=== PATIENT | male | born 2000 | race Caucasian/White ===

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

== ENCOUNTER → 2022-05-04 | Outpatient (CLI) | payer OTHER | END | disposition home or self-care (01) | LOC: LAB 13:30 → LAB SHORT 13:30 | DX: J02.9 Acute pharyngitis, unspecified (principal) | CPT/HCPCS: 87081 ==

== ENCOUNTER 2024-03-14 13:03 | Emergency (ER) | payer SELFPAY ==
[~2024-03-14] VITALS: Ht 177.8 cm; Wt 81.7 kg
[~2024-03-14 13:03] MED LIST changes: -ALBU90OI INH; -OMEP20ER PO
[2024-03-14] MEDS ORDERED: ALBU90OI INH (15:23)
[2024-03-14] MEDS ORDERED: OMEP20ER PO (16:06)
[2024-03-14 16:30] VITALS: BP 133/65
== END 2024-03-14 17:00 | disposition home or self-care (01) ==
LOC: ER 13:03
DX: R10.13 Epigastric pain (principal); F17.220 Nicotine dependence, chewing tobacco, uncomplicated
CPT/HCPCS: 74018; 76705; 80053; 83690; 85025; 99284-25

== ENCOUNTER → 2024-03-14 | Outpatient (CLI) | payer SELFPAY ==
[~2024-03-14] MED LIST changes: +ALBU90OI INH; +OMEP20ER PO
[2024-03-14 11:36] LABS: BASOPHILS ABSOLUTE AUTO 0.02 K/mm3 (0.00-0.23); BASOPHILS PERCENT AUTO 0 % (0-2); EOSINOPHILS ABSOLUTE AUTO 0.08 K/mm3 (0.00-0.68); EOSINOPHILS PERCENT AUTO 1 % (0-6); Hematocrit 45.7 % (37.0-53.0); Hemoglobin 15.9 g/dL (13.5-17.5); IMMATURE GRAN ABSOLUTE AUTO 0.02 K/mm3 (0.00-0.10); IMMATURE GRAN PERCENT AUTO 0 % (0-1); LYMPHOCYTES ABSOLUTE AUTO 1.99 K/mm3 (0.84-5.20); LYMPHOCYTES PERCENT AUTO 30 % (21-46); MONOCYTES PERCENT AUTO 9 % (4-13); Mean Corpuscular HGB Conc 34.8 g/dL (31.5-36.5); Mean Corpuscular Volume 81 fL (80-100); Mean Platelet Volume 9.5 fL (9.1-12.4); NEUTROPHILS ABSOLUTE AUTO 3.84 K/mm3 (1.96-9.15); NEUTROPHILS PERCENT AUTO 59 % (41-73); Platelet Count 277 K/mm3 (150-400); RDW Coefficient Variation 11.9 % (11.7-14.2); RDW Standard Deviation 34.7 fL (35.1-46.3); Red Blood Cell Count 5.68 M/mm3 (4.30-5.90); White Blood Cell Count 6.55 K/mm3 (4.00-11.30)
[2024-03-14 11:45] LABS: Albumin, Blood 4.6 g/dL (3.4-5.0); Albumin/Globulin Ratio 1.2 (0.8-1.8); Bilirubin, Total 0.5 mg/dL (0.1-1.0); Bun/Creatinine Ratio 14.4 (12.0-20.0); Calcium, Blood 9.6 mg/dL (8.5-10.1); Creatinine, Blood 1.18 mg/dL (0.60-1.20); Globulin, Blood 3.7 g/dL (2.2-4.0); Potassium, Blood 3.7 mmol/L (3.5-5.5); Total Protein, Blood 8.3 g/dL (6.4-8.2)
== END | disposition home or self-care (01) ==
LOC: LAB SHORT 11:32 → LAB 11:32
PROVIDERS: Physician Assistant
DX: R10.9 Unspecified abdominal pain (principal)
CPT/HCPCS: 80053; 83690; 85025

== ENCOUNTER 2024-04-09 09:37 | Emergency (ER) | payer OTHER ==
[~2024-04-09] VITALS: Ht 180.3 cm; Wt 86.2 kg
[~2024-04-09 09:37] MED LIST changes: +ALBU90OI INH; +OMEP20ER PO
[2024-04-09] MEDS ORDERED: NS 1,000 ML IV SCH (10:20)
[2024-04-09] MEDS ORDERED: Ondansetron HCl 2 MG / ML 2ML Vial IV ONE (10:20)
[2024-04-09] MEDS ORDERED: Morphine Sulfate 4 MG/1 ML Injection IV ONE (10:20)
[2024-04-09 11:18] LABS: BASOPHILS ABSOLUTE AUTO 0.02 K/mm3 (0.00-0.23); BASOPHILS PERCENT AUTO 0 % (0-2); EOSINOPHILS ABSOLUTE AUTO 0.05 K/mm3 (0.00-0.68); EOSINOPHILS PERCENT AUTO 0 % (0-6); Hematocrit 46.7 % (37.0-53.0); IMMATURE GRAN ABSOLUTE AUTO 0.05 K/mm3 (0.00-0.10); IMMATURE GRAN PERCENT AUTO 0 % (0-1); LYMPHOCYTES ABSOLUTE AUTO 1.56 K/mm3 (0.84-5.20); LYMPHOCYTES PERCENT AUTO 13 % (21-46); MONOCYTES ABSOLUTE AUTO 0.66 K/mm3 (0.16-1.47); MONOCYTES PERCENT AUTO 5 % (4-13); Mean Corpuscular HGB 28.3 pg (26.0-34.0); Mean Corpuscular HGB Conc 34.3 g/dL (31.5-36.5); Mean Corpuscular Volume 83 fL (80-100); Mean Platelet Volume 9.4 fL (9.1-12.4); NEUTROPHILS ABSOLUTE AUTO 10.03 K/mm3 (1.96-9.15); NEUTROPHILS PERCENT AUTO 81 % (41-73); Platelet Count 295 K/mm3 (150-400); RDW Coefficient Variation 12.4 % (11.7-14.2); Red Blood Cell Count 5.66 M/mm3 (4.30-5.90); White Blood Cell Count 12.37 K/mm3 (4.00-11.30)
[2024-04-09] MEDS ORDERED: Morphine Sulfate 4 MG/1 ML Injection IM ONE (11:35)
[2024-04-09 11:38] LABS: Albumin, Blood 4.6 g/dL (3.4-5.0); Albumin/Globulin Ratio 1.2 (0.8-1.8); Bilirubin, Total 0.7 mg/dL (0.1-1.0); Bun/Creatinine Ratio 9.9 (12.0-20.0); Calcium, Blood 10.2 mg/dL (8.5-10.1); Creatinine, Blood 1.01 mg/dL (0.60-1.20); Globulin, Blood 3.8 g/dL (2.2-4.0); Potassium, Blood 3.5 mmol/L (3.5-5.5); Total Protein, Blood 8.4 g/dL (6.4-8.2)
[2024-04-09] MEDS ORDERED: Lidocaine 2% Viscous Soln 15 ML UDC PO ONE ×2 (12:40→13:30)
[2024-04-09] MEDS ORDERED: Mag Hydrox/AL Hydrox/Simeth 30 ML UDC PO ONE ×2 (12:40→13:30)
[2024-04-09] MEDS ORDERED: Atropine/Scopalam/Hyoscam/PB 5 ML UDC PO ONE ×2 (12:40→13:30)
[2024-04-09 12:59] LABS: Source, Urine Clean Catch
[2024-04-09 13:04] LABS: Appearance, Urine Clear (Clear); Bilirubin, Urine Neg (Neg); Blood, Urine Neg (Neg); Color, Urine Yellow (P-Yellow); Glucose Qualitative, Urine Neg (Neg); Ketones, Urine 2+ (Neg); Leukocyte Esterase, Urine Neg (Neg); Nitrite, Urine Neg (Neg); Protein, Urine Neg (Neg); Urobilinogen, Urine NORM (Normal)
[2024-04-09] MEDS ORDERED: DICY20 PO (14:22)
[2024-04-09] MEDS ORDERED: ONDA4ODT MM (14:22)
[2024-04-09] MEDS ORDERED: FAMO20 PO (14:22)
[2024-04-09] MEDS ORDERED: ALUM-MAG HYDROX30 M1 PO (14:22)
[2024-04-09 14:28] VITALS: BP 155/88
== END 2024-04-09 14:29 | disposition home or self-care (01) ==
LOC: ER 09:37
PROVIDERS: Student in an Organized Health Care Education/Training Program
DX: R10.13 Epigastric pain (principal); R11.2 Nausea with vomiting, unspecified; R14.0 Abdominal distension (gaseous); J45.998 Other asthma; F17.220 Nicotine dependence, chewing tobacco, uncomplicated; Z79.899 Other long term (current) drug therapy
CPT/HCPCS: 74177; 80053; 81003; 83690; 85025; 96361; 96374-59; 96375; 96376; 99284-25; A9270; J2270; J2405; J7030; Q9967

== ENCOUNTER 2024-04-11 16:08 | Emergency (ER) | payer OTHER ==
[~2024-04-11] VITALS: Ht 180.3 cm; Wt 80.7 kg
[~2024-04-11 16:08] MED LIST changes: +ALUM-MAG HYDROX30 M1 PO; +DICY20 PO; +FAMO20 PO; +ONDA4ODT MM
[2024-04-11 16:46] LABS: BASOPHILS ABSOLUTE AUTO 0.02 K/mm3 (0.00-0.23); BASOPHILS PERCENT AUTO 0 % (0-2); EOSINOPHILS ABSOLUTE AUTO 0.01 K/mm3 (0.00-0.68); EOSINOPHILS PERCENT AUTO 0 % (0-6); Hemoglobin 16.2 g/dL (13.5-17.5); IMMATURE GRAN ABSOLUTE AUTO 0.03 K/mm3 (0.00-0.10); IMMATURE GRAN PERCENT AUTO 0 % (0-1); LYMPHOCYTES ABSOLUTE AUTO 0.98 K/mm3 (0.84-5.20); LYMPHOCYTES PERCENT AUTO 8 % (21-46); MONOCYTES ABSOLUTE AUTO 0.64 K/mm3 (0.16-1.47); MONOCYTES PERCENT AUTO 5 % (4-13); Mean Corpuscular HGB 28.3 pg (26.0-34.0); Mean Corpuscular HGB Conc 34.5 g/dL (31.5-36.5); Mean Corpuscular Volume 82 fL (80-100); NEUTROPHILS ABSOLUTE AUTO 10.97 K/mm3 (1.96-9.15); NEUTROPHILS PERCENT AUTO 87 % (41-73); Platelet Count 273 K/mm3 (150-400); RDW Coefficient Variation 12.3 % (11.7-14.2); RDW Standard Deviation 36.5 fL (35.1-46.3); Red Blood Cell Count 5.72 M/mm3 (4.30-5.90); White Blood Cell Count 12.65 K/mm3 (4.00-11.30)
[2024-04-11 17:04] LABS: Albumin, Blood 4.2 g/dL (3.4-5.0); Albumin/Globulin Ratio 1.1 (0.8-1.8); Bilirubin, Total 0.8 mg/dL (0.1-1.0); Bun/Creatinine Ratio 13.4 (12.0-20.0); Calcium, Blood 9.5 mg/dL (8.5-10.1); Creatinine, Blood 0.97 mg/dL (0.60-1.20); Globulin, Blood 3.7 g/dL (2.2-4.0); Potassium, Blood 3.8 mmol/L (3.5-5.5); Total Protein, Blood 7.9 g/dL (6.4-8.2)
[2024-04-11] MEDS ORDERED: NS 1,000 ML IV SCH ×2 (18:55→20:15)
[2024-04-11] MEDS ORDERED: Droperidol 5 mg/2 ml Vial IV ONE (18:55)
[2024-04-11] MEDS ORDERED: Haloperidol Lactate Inj. 5 MG/ML Injection IV ONE (19:20)
[2024-04-11] MEDS ORDERED: DiphenhydrAMINE HCl 50 MG/ML 1ML Vial IV ONE (19:50)
[2024-04-11 21:06] VITALS: BP 129/69
== END 2024-04-11 21:07 | disposition home or self-care (01) ==
LOC: ER 16:08
PROVIDERS: Physician Assistant
DX: R11.2 Nausea with vomiting, unspecified (principal); E86.0 Dehydration; F17.220 Nicotine dependence, chewing tobacco, uncomplicated; Z79.899 Other long term (current) drug therapy
CPT/HCPCS: 80053; 85025; 96361; 96374; 96375; 99284-25; J1200; J1630; J7030

== ENCOUNTER 2024-04-15 10:00 | Inpatient (IN) | payer OTHER ==
[~2024-04-15] VITALS: Ht 180.3 cm; Wt 78.3 kg
[2024-04-15] MEDS ORDERED: Ondansetron HCl 2 MG / ML 2ML Vial IV ONE (10:20)
[2024-04-15 10:55] LABS: BASOPHILS ABSOLUTE AUTO 0.02 K/mm3 (0.00-0.23); BASOPHILS PERCENT AUTO 0 % (0-2); EOSINOPHILS ABSOLUTE AUTO 0.08 K/mm3 (0.00-0.68); EOSINOPHILS PERCENT AUTO 1 % (0-6); Hematocrit 47.5 % (37.0-53.0); Hemoglobin 16.7 g/dL (13.5-17.5); IMMATURE GRAN ABSOLUTE AUTO 0.02 K/mm3 (0.00-0.10); IMMATURE GRAN PERCENT AUTO 0 % (0-1); LYMPHOCYTES ABSOLUTE AUTO 1.92 K/mm3 (0.84-5.20); LYMPHOCYTES PERCENT AUTO 27 % (21-46); MONOCYTES ABSOLUTE AUTO 0.73 K/mm3 (0.16-1.47); MONOCYTES PERCENT AUTO 10 % (4-13); Mean Corpuscular HGB 28.4 pg (26.0-34.0); Mean Corpuscular HGB Conc 35.2 g/dL (31.5-36.5); Mean Corpuscular Volume 81 fL (80-100); NEUTROPHILS PERCENT AUTO 61 % (41-73); Platelet Count 276 K/mm3 (150-400); RDW Coefficient Variation 12.3 % (11.7-14.2); RDW Standard Deviation 35.2 fL (35.1-46.3); Red Blood Cell Count 5.89 M/mm3 (4.30-5.90); White Blood Cell Count 7.17 K/mm3 (4.00-11.30)
[2024-04-15 11:14] LABS: Albumin, Blood 4.4 g/dL (3.4-5.0); Albumin/Globulin Ratio 1.2 (0.8-1.8); Bilirubin, Total 1.1 mg/dL (0.1-1.0); Bun/Creatinine Ratio 11.4 (12.0-20.0); Calcium, Blood 9.3 mg/dL (8.5-10.1); Creatinine, Blood 1.05 mg/dL (0.60-1.20); Globulin, Blood 3.8 g/dL (2.2-4.0); Magnesium, Blood 2.3 mg/dL (1.6-2.4); Potassium, Blood 3.4 mmol/L (3.5-5.5); Total Protein, Blood 8.2 g/dL (6.4-8.2)
[2024-04-15] MEDS ORDERED: Metoclopramide HCl 5MG / ML 2ML Vial IV ONE (14:05)
[2024-04-15] MEDS ORDERED: NS 1,000 ML IV SCH (14:05)
[2024-04-15] MEDS ORDERED: Morphine Sulfate 4 MG/1 ML Injection IV ONE (14:40)
[2024-04-15] MEDS ORDERED: Sucralfate 1000MG / 10ML UD BTL PO ONE (15:05)
[2024-04-15] MEDS ORDERED: Metoclopramide HCl 5MG / ML 2ML Vial IV PRN (18:30)
[2024-04-15] MEDS ORDERED: FLU VACC TS2024-25(6MOS UP)/PF 45 MCG/0.5 ML SYRINGE IM SCH (18:30)
[2024-04-15] MEDS ORDERED: Calcium Carbonate 500 MG Tab Chew PO PRN (18:35)
[2024-04-15] MEDS ORDERED: FentaNYL Citrate 50 MCG/ML 2 ML Injection IV PRN (18:35)
[2024-04-15] MEDS ORDERED: Albuterol 2.5 MG/3 ML VIAL INH PRN (18:35)
[2024-04-15] MEDS ORDERED: Aluminum Hydroxide 320MG/5ML 473 ML PO PRN (18:35)
[2024-04-15] MEDS ORDERED: Potassium Chloride 20 MEQ/15 ML UDC PO ONE ×2 (19:00→21:00)
[2024-04-15 20:38] LABS: U Amphetamine Screen Not Detected; U Barbituate Screen Not Detected; U Benzodiazapine Screen Not Detected; U Buprenorphine Screen Not Detected; U Cannabinoids Screen DETECTED; U Cocaine Screen Not Detected; U Methadone Screen Not Detected; U Methamphetamine Screen Not Detected; U Opiates Screen Not Detected; U Oxycodone Screen Not Detected; U Phencyclidine Screen Not Detected
[2024-04-15 20:46] VITALS: BP 173/111
[2024-04-15] MEDS ORDERED: FentaNYL Citrate 50 MCG/ML 2 ML Injection IV ONE (21:10)
[2024-04-15] MEDS ORDERED: Ondansetron HCl 2 MG / ML 2ML Vial IV PRN (21:15)
[2024-04-16] VITALS (24 sets, daily range): BP systolic 96–150; BP diastolic 54–96
--- NOTE | 2024-04-16 05:37 | NUR ---
SHIFT SUMMARY NOC PT A/O X 4. PLEASANT AND COOPERATIVE WITH CARE. ADMIT FOR EPIGASTRIC PAIN LAURA ON 1 MONTH. PT HAS HAD MULTIPLE VISITS TO ED IN PAST WEEK. PT HAD GI CONSULT WITH DR BENITEZ WHO WILL PERFORM UPPER ENDOSCOPY TOMORROW AFTERNOON. NURSE NOTIFY IN PLACE TO CHANGE CLEAR LIQUID DIET TO SIPS/CHIPS @ 0600, THEN NPO @ 1100 TO PREPARE FOR PROCEDURE. PT ABD PAIN/NAUSEA BEING MANAGED PER EMAR. DURING ADMIT ASSESSMENT PT ENDORSED LOSING AT LEAST 15 LBS OVER PAST FEW WEEKS DUE TO POOR APPETITE DUE TO ABD PAIN/NAUSEA. PT CURRENTLY RESTING WITH BED IN LOWEST POSITION, AND CALL LIGHT WITHIN REACH.
[2024-04-16] MEDS ORDERED: Pantoprazole Sodium 40 MG Injection IV SCH (06:00)
[2024-04-16] MEDS ORDERED: Lactated Ringer's 1,000 ML IV SCH (06:35)
--- NOTE | 2024-04-16 06:47 | NUR ---
DAY SURGERY CALLED AND WERE TOLD THAT PT LAST PO INTAKE @ 439. SURGERY CENTER SAID AM SPOTS OPEN FOR PROCEDURE @ 0900, PT NPO SINCE [phone].
--- NOTE | 2024-04-16 07:45 | NUR ---
pt sitting up in bed leaning forward in pain, a/ox4, pleasant and cooperative with care, follows commands well, reports 8/10 pain a bit distal to epigastric area, reports n/v, but not since yesterday, lungs are clear t/o, resp even and unlabored, no cough noted, on r/a, hrr, no edema noted, ppp+2, cap refill <3 sec, vs stable, afberile, piv to rac site is clear and patent, btx4, abd flat soft nontender, voids without diff, skin c/w/d, maew, corazon, call light in reach.
[2024-04-16 08:00] LABS: BASOPHILS ABSOLUTE AUTO 0.04 K/mm3 (0.00-0.23); BASOPHILS PERCENT AUTO 1 % (0-2); EOSINOPHILS ABSOLUTE AUTO 0.18 K/mm3 (0.00-0.68); EOSINOPHILS PERCENT AUTO 2 % (0-6); Hematocrit 45.4 % (37.0-53.0); Hemoglobin 15.8 g/dL (13.5-17.5); IMMATURE GRAN ABSOLUTE AUTO 0.03 K/mm3 (0.00-0.10); IMMATURE GRAN PERCENT AUTO 0 % (0-1); LYMPHOCYTES ABSOLUTE AUTO 2.62 K/mm3 (0.84-5.20); LYMPHOCYTES PERCENT AUTO 33 % (21-46); MONOCYTES ABSOLUTE AUTO 0.87 K/mm3 (0.16-1.47); MONOCYTES PERCENT AUTO 11 % (4-13); Mean Corpuscular HGB 28.6 pg (26.0-34.0); Mean Corpuscular HGB Conc 34.8 g/dL (31.5-36.5); Mean Corpuscular Volume 82 fL (80-100); Mean Platelet Volume 8.8 fL (9.1-12.4); NEUTROPHILS ABSOLUTE AUTO 4.15 K/mm3 (1.96-9.15); NEUTROPHILS PERCENT AUTO 53 % (41-73); Platelet Count 267 K/mm3 (150-400); RDW Coefficient Variation 12.6 % (11.7-14.2); RDW Standard Deviation 37.5 fL (35.1-46.3); Red Blood Cell Count 5.52 M/mm3 (4.30-5.90); White Blood Cell Count 7.89 K/mm3 (4.00-11.30)
[2024-04-16 08:28] LABS: Albumin, Blood 3.9 g/dL (3.4-5.0); Albumin/Globulin Ratio 1.1 (0.8-1.8); Bilirubin, Total 1.1 mg/dL (0.1-1.0); Bun/Creatinine Ratio 12.5 (12.0-20.0); Calcium, Blood 9.3 mg/dL (8.5-10.1); Creatinine, Blood 0.96 mg/dL (0.60-1.20); Globulin, Blood 3.5 g/dL (2.2-4.0); Potassium, Blood 3.8 mmol/L (3.5-5.5); Total Protein, Blood 7.4 g/dL (6.4-8.2)
[2024-04-16] MEDS ORDERED: propofoL 40 ML IV ONE (08:28)
[2024-04-16] MEDS ORDERED: Midazolam HCl 1MG / ML 2ML Vial ONE (08:30)
--- NOTE | 2024-04-16 09:00 | NUR ---
Pt left for egd.
--- NOTE | 2024-04-16 09:12 | NUR ---
04/16/24 0912 Nicolas Moss CONFIRMED AND REVIEWED H&P, MEDCICATIONS, ALLERGIES, MEDICAL HISTORY, RESPIRATORY HISTORY, VITAL SIGNS, 3-LEAD EKG, CONSENTS, AND PHYSICIAN ORDERS. PATIENT CONFIRMS NPO STATUS AND AGREES WITH SCHEDULED PROCEDURE. MONITOR INTACT WITH CONTINUOUS PULSE OXIMETRY, CAPNOGRAPHY, 3-LEAD EKG, INTERMITTENT BP. SUPPLEMENTAL O2 TO BE TITRATED THROUGHOUT PROCEDURE TO MAINTAIN O2 SATURATION ABOVE 90%. PATIENT DETERMINED TO BE ASA APPROPRIATE FOR PROPOFOL SEDATION PRIOR TO START OF PROCEDURE BY DR. BENITEZ.
--- NOTE | 2024-04-16 09:37 | NUR ---
PT ARRIVED TO UNIT VIA W/C. INDEPENDENTLY TRANSFERRED TO W/C IN ROOM. GOWN PLACED ON PT IN ROOM. History, Chart, Medications and Allergies reviewed before start of procedure. MOTHER AND FATHER ACCOMPANIED PT TO DAY SURGERY. AT BEDSIDE. Pre-Op teaching done. Pt verbalizes understanding.
--- NOTE | 2024-04-16 13:04 | NUR ---
pt started on clear liquids, he reports nausea with taking the clears, but water isn't bothering him, zofran given as ordered, call light in reach. dad at bedside.
--- NOTE | 2024-04-16 18:04 | NUR ---
pt resting in bed, was treated for nausea once after he tried to take clear liquids, will be on clears, then just water after 5am, then npo after 11 for scope, no further changes this shift. call light in reach.
--- NOTE | 2024-04-17 03:31 | NUR ---
SHIFT SUMMARY PT IS A/O X4, TALKATIVE, COOPERATIVE WITH CARE. RIGHT CHEECK SWOLLEN, PT C/O 6-10/11 PAIN IN ORAL CAVITY, CHEECK AND NUMBNESS AND DISCOMFORT ON LIPS. PT STATES "LIKE A NERVE PAIN". NEW ORDER FOR ORAJEL TOPICAL RECEIVED FROM THE ON-CALL HOSPITALIST. DILAUDID CHANGED TO Q2HRS 0.5-1MG IV PRN , AND PERCOCET PO 5MG PRN CHANGED TO Q4HRS. IV ABX INFUSED ORDERED. PT AMBULATES INDEPENDENTLY TO THE RESTROOM. PT ASLEEP <4HRS DURING THIS SHIFT. CIWA Q4HRS SCORES 1, AND 4, R/T ANXIIETY AND SLIGHT AGITATION AT NIGHT TIME. NO ACUTE EVENTS DURING THIS SHIFT. BED AT THE LOWEST POSITION, CALL LIGHT W/I REACH. PT IS ABLE TO MAKE HIS NEEDS KNOWN.
--- NOTE | 2024-04-17 03:43 | NUR ---
SHIFT SUMMARY PT IS VERY PLEASANT, A/O X4, AMBULATES INDEPENDENTLY WITHIN THE HOSPITAL ROOM. @HS MOTHER BY THE BEDSIDE. PT C/O INTENSE EPIGASTRIC PAIN 7/10, MEDICATED PER EMAR WITH GOOD EFFECTIVNESS. PER PT REPORT, IV FENTANYL TAKES THE PAIN TO 0/10 IMMEDIATELY. PRN IV ZOFRAN ADMINISTERED ORDERED FOR C/O NAUSEA. NO VOMIT DURING THIS SHIFT. NO PO INTAKE DURING THIS SHIFT (CLEAR LIQUIDS). PT'S ORDER IS H20 AND ICE CHIPS UNTIL 1100 TODAY. THEN NPO @1100 UNTIL SCHEDULED COLONOSCOPY TODAY. BOWEL PREP SCHEDULED TO START THIS MORNING 0830. 24HR URINE COLLECTION ENDING @1500 TODAY. STOOL SAMPLE NOT COLLECTED DURING THIS SHIFT, NO BM DURING NIGHT HRS. NO ACUTE EVENTS DURING THIS SHIFT. PT IS ABLE TO MAKE HIS NEEDS KNOWN AND IS COOPERATIVE WITH CARE.
[2024-04-17 04:06] VITALS: BP 132/74
[2024-04-17 05:12] LABS: BASOPHILS ABSOLUTE AUTO 0.02 K/mm3 (0.00-0.23); BASOPHILS PERCENT AUTO 0 % (0-2); EOSINOPHILS ABSOLUTE AUTO 0.11 K/mm3 (0.00-0.68); EOSINOPHILS PERCENT AUTO 1 % (0-6); Hematocrit 45.4 % (37.0-53.0); Hemoglobin 15.2 g/dL (13.5-17.5); IMMATURE GRAN ABSOLUTE AUTO 0.02 K/mm3 (0.00-0.10); IMMATURE GRAN PERCENT AUTO 0 % (0-1); LYMPHOCYTES PERCENT AUTO 31 % (21-46); MONOCYTES ABSOLUTE AUTO 0.69 K/mm3 (0.16-1.47); MONOCYTES PERCENT AUTO 9 % (4-13); Mean Corpuscular HGB 28.1 pg (26.0-34.0); Mean Corpuscular HGB Conc 33.5 g/dL (31.5-36.5); Mean Corpuscular Volume 84 fL (80-100); Mean Platelet Volume 9.2 fL (9.1-12.4); NEUTROPHILS ABSOLUTE AUTO 4.43 K/mm3 (1.96-9.15); NEUTROPHILS PERCENT AUTO 58 % (41-73); Platelet Count 248 K/mm3 (150-400); RDW Coefficient Variation 12.5 % (11.7-14.2); RDW Standard Deviation 37.5 fL (35.1-46.3); Red Blood Cell Count 5.41 M/mm3 (4.30-5.90); White Blood Cell Count 7.67 K/mm3 (4.00-11.30)
[2024-04-17 05:46] LABS: Albumin, Blood 3.9 g/dL (3.4-5.0); Albumin/Globulin Ratio 1.1 (0.8-1.8); Bilirubin, Total 1.3 mg/dL (0.1-1.0); Bun/Creatinine Ratio 8.2 (12.0-20.0); Calcium, Blood 9.3 mg/dL (8.5-10.1); Creatinine, Blood 1.1 mg/dL (0.60-1.20); Globulin, Blood 3.4 g/dL (2.2-4.0); Potassium, Blood 3.8 mmol/L (3.5-5.5); Total Protein, Blood 7.3 g/dL (6.4-8.2)
[2024-04-17 07:21] VITALS: BP 122/75
[2024-04-17] MEDS ORDERED: Sodium, Potassium,Mag Sulfates 354 ML PO SCH (08:30)
--- NOTE | 2024-04-17 08:30 | NUR ---
pt sitting up in bed, awake a/ox4, pleasant and cooperative with care, follows commands well, understands he will be having a scope today and will be prepped, this was started at this time, lungs are clear t/o, resp even and unlabored, no cough noted, hrr, no edema noted, ppp+2, cap refill<3 sec, vs stable, afebrile, piv to rac site is clear and patent, bt x4, abd flat soft nontender, voids without diff, skin c/w/d, maew, corazon, call light in reach.
[2024-04-17] MEDS ORDERED: Lactated Ringer's 1,000 ML IV SCH (13:10)
[2024-04-17 13:17] VITALS: BP 135/83
[2024-04-17] MEDS ORDERED: propofoL 40 ML IV ONE (13:52)
[2024-04-17] MEDS ORDERED: propofoL 20 ML IV ONE (14:20)
[2024-04-17 14:49] VITALS: BP 122/73
[2024-04-17 14:50] VITALS: BP 122/73
[2024-04-17] MEDS ORDERED: FAMO20 PO (15:21)
[2024-04-17] MEDS ORDERED: METO5A PO (15:22)
[2024-04-17] MEDS ORDERED: KETO10 PO (15:23)
[2024-04-17 15:56] VITALS: BP 130/72
--- NOTE | 2024-04-17 16:18 | NUR ---
DISCHARGE REVIEWED WITH PT AND FATHER. IV PULLED BY AIDE. NO TELE. PT AMBULATED SELF TO DOOR AT 1617
[2024-04-18 02:23] LABS: IMMUNOGLOBULIN A 202 mg/dL (68-408)
[2024-04-18 05:00] LABS: IMMUNOGLOBULIN E 140 kU/L (<=214)
[2024-04-18 05:43] LABS: ANTI-NUCLEAR AB ANA,IGG ELISA None Detected (None Detected)
[2024-04-18 13:05] LABS: MYELOPEROXIDASE (MPO) AB,IGG 0 AU/mL (0-19); SERINE PROTEINASE 3 PR3 AB,IGG 1 AU/mL (0-19)
== END 2024-04-17 16:19 | disposition home or self-care (01) | DRG 392 ==
LOC: ER 10:00 → ERHOLD 16:23 → MEDS 16:23 → ER 18:29 → MEDS 20:42
PROVIDERS: Internal Medicine Gastroenterology; Physician Assistant; Student in an Organized Health Care Education/Training Program; ADMIT Internal Medicine
PROC: 0DB78ZX Excision of Stomach, Pylorus, Via Natural or Artificial Opening Endoscopic, Diagnostic (ICD-10-PCS; 2024-04-16)
PROC: 0DB68ZX Excision of Stomach, Via Natural or Artificial Opening Endoscopic, Diagnostic (ICD-10-PCS; 2024-04-16)
PROC: 0DB18ZX Excision of Upper Esophagus, Via Natural or Artificial Opening Endoscopic, Diagnostic (ICD-10-PCS; 2024-04-16)
PROC: 0DB28ZX Excision of Middle Esophagus, Via Natural or Artificial Opening Endoscopic, Diagnostic (ICD-10-PCS; 2024-04-16)
PROC: 0DB98ZX Excision of Duodenum, Via Natural or Artificial Opening Endoscopic, Diagnostic (ICD-10-PCS; principal; 2024-04-16 08:00)
PROC: 0DBE8ZX Excision of Large Intestine, Via Natural or Artificial Opening Endoscopic, Diagnostic (ICD-10-PCS; 2024-04-17)
DX: R10.13 Epigastric pain (principal); J45.20 Mild intermittent asthma, uncomplicated; K21.9 Gastro-esophageal reflux disease without esophagitis; R11.2 Nausea with vomiting, unspecified; E87.6 Hypokalemia
CPT/HCPCS: 36415; 80053; 82784; 82785; 83516; 83690; 83735; 84311; 85025; 85651; 86038; 86140; 86141; 88305; 88342; 93005; 93010; 94760; 96361; 96374; 96375; 96376; 99285-25; A9270; G0378; J2250; J2270; J2405; J2470; J2704; J2765; J3010; J7030; J7120

== ENCOUNTER 2025-02-20 16:09 | Emergency (ER) | payer OTHER ==
[~2025-02-20] VITALS: Ht 180.3 cm; Wt 79.4 kg
[~2025-02-20 16:09] MED LIST changes: +COMPAZINE10 MG PO; +KETO10 PO; +METO5A PO
[2025-02-20 17:09] VITALS: BP 157/90
[2025-02-20] MEDS ORDERED: Ondansetron HCl 2 MG / ML 2ML Vial IM ONE (17:20)
[2025-02-20] MEDS ORDERED: Ketorolac Tromethamine 30mg Vial IV ONE (17:20)
[2025-02-20 17:27] LABS: BASOPHILS ABSOLUTE AUTO 0.02 K/mm3 (0.00-0.23); BASOPHILS PERCENT AUTO 0 % (0-2); EOSINOPHILS ABSOLUTE AUTO 0.01 K/mm3 (0.00-0.68); EOSINOPHILS PERCENT AUTO 0 % (0-6); Hematocrit 45.1 % (37.0-53.0); Hemoglobin 16.1 g/dL (13.5-17.5); IMMATURE GRAN ABSOLUTE AUTO 0.03 K/mm3 (0.00-0.10); IMMATURE GRAN PERCENT AUTO 0 % (0-1); LYMPHOCYTES ABSOLUTE AUTO 1.71 K/mm3 (0.84-5.20); LYMPHOCYTES PERCENT AUTO 14 % (21-46); MONOCYTES ABSOLUTE AUTO 1.24 K/mm3 (0.16-1.47); MONOCYTES PERCENT AUTO 10 % (4-13); Mean Corpuscular HGB Conc 35.7 g/dL (31.5-36.5); Mean Corpuscular Volume 81 fL (80-100); NEUTROPHILS ABSOLUTE AUTO 9.38 K/mm3 (1.96-9.15); NEUTROPHILS PERCENT AUTO 76 % (41-73); NRBC ABSOLUTE 0.00 K/mm3 (0.00-0.02); NRBC Auto 0.0 /100 WBC (0.0-0.2); Platelet Count 343 K/mm3 (150-400); RDW Coefficient Variation 11.9 % (11.7-14.2); RDW Standard Deviation 34.4 fL (35.1-46.3)
[2025-02-20 18:26] LABS: Alanine Aminotransfer (ALT/SGP 81.0 U/L (12-78); Albumin, Blood 4.8 g/dL (3.4-5.0); Albumin/Globulin Ratio 1.3 (0.8-1.8); Anion Gap 11.0 mmol/L (3-11); Aspartate Aminotrans (AST/SGOT 50.0 U/L (12-37); Bilirubin, Total 1.2 mg/dL (0.1-1.0); Blood Urea Nitrogen 12.0 mg/dL (8-24); CO2, Blood 25.0 mmol/L (21-32); Calcium, Blood 9.8 mg/dL (8.5-10.1); Chloride, Blood 104.0 mmol/L (98-108); Creatinine, Blood 1.03 mg/dL (0.60-1.20); Globulin, Blood 3.7 g/dL (2.2-4.0); Glucose, Blood 110.0 mg/dL (70-99); Potassium, Blood 3.8 mmol/L (3.5-5.5); Sodium, Blood 136.0 mmol/L (136-145); Total Protein, Blood 8.5 g/dL (6.4-8.2)
[2025-02-20] MEDS ORDERED: Lidocaine 2% Viscous Soln 15 ML UDC PO ONE (19:10)
[2025-02-20] MEDS ORDERED: Ondansetron HCl 2 MG / ML 2ML Vial IV ONE (19:10)
[2025-02-20] MEDS ORDERED: RX Prepack 2 Tabs Ondansetron ODT 4MG UD ONE (19:10)
[2025-02-20] MEDS ORDERED: NS 1,000 ML IV SCH (19:10)
[2025-02-20] MEDS ORDERED: ONDA4ODT MM (19:12)
[2025-02-20] MEDS ORDERED: PROM12.5S PR (19:12)
[2025-02-20] MEDS ORDERED: FAMO20 PO (19:31)
== END 2025-02-20 19:55 | disposition home or self-care (01) ==
LOC: ER 16:09
PROVIDERS: Student in an Organized Health Care Education/Training Program
DX: K29.70 Gastritis, unspecified, without bleeding (principal); Z79.899 Other long term (current) drug therapy; Z59.6 Low income; Z59.89 Other problems related to housing and economic circumstances
CPT/HCPCS: 76705; 80053; 83690; 85025; 96372-59; 96374; 96375; 99284-25; A9270; J1885; J2405; J7030